=== PATIENT | male | born 1985 | race Caucasian/White ===

== ENCOUNTER 2017-05-25 14:42 | Emergency (ER) | payer BC ==
[~2017-05-25] VITALS: Ht 195.6 cm; Wt 93.0 kg
[2017-05-25 15:47] VITALS: BP 144/84
== END 2017-05-25 16:26 | disposition home or self-care (01) ==
LOC: ER 14:53
DX: S42.142A Displaced fracture of glenoid cavity of scapula, left shoulder, initial encounter for closed fracture (principal); S43.005A Unspecified dislocation of left shoulder joint, initial encounter; V00.831A Fall from motorized mobility scooter, initial encounter; Y93.89 Activity, other specified; Y99.8 Other external cause status; Y92.89 Other specified places as the place of occurrence of the external cause
CPT/HCPCS: 73030